=== PATIENT | male | born 1930 | race Caucasian/White ===

== ENCOUNTER 2016-05-14 15:10 | Inpatient (IN) | payer MEDICARE ==
--- NOTE | ~2016-05-14 | HP ---
History And Physical [place] [id number] [facility] [place]. [address] NAME: Fran HUBBARD JR : 34 STATUS : ADM IN [facility]#: [id number] AGE: 85 ADM/REG DATE : 05/14/16 MR#: [id number] REPORT SERV DATE: 05/15/16 DICTATED BY: JUAN CHAVEZ DATE: 05/14/16 REPORT STATUS : Draft TRANSCRIBED BY: FRANCINE DATE: 05/14/16 DATE OF ADMISSION: 05/14/2016 CHIEF COMPLAINT: Generalized weakness and fatigue. HISTORY OF PRESENT ILLNESS: This is an 85-year-old male with medical history significant for COPD on home O2 at night, chronic kidney disease stage III, history of aortic valve replacement, morbid obesity, chronic lymphedema, who presented to the emergency room department with complaints of generalized fatigue and generalized weakness. The patient reports that he was in his usual state of health until three days ago when he noticed that he was having generalized weakness and fatigue with some associated low-grade fevers at home. Until the day of presentation, he subsequently developed a cough, which became productive of yellowish sputum. There was associated diffuse wheezing and shortness of breath on exertion and at rest. The patient reports some positive history of sick contact, the patient's and daughter were recently diagnosed with flu. The patient reports that in the last 24 hours, he has developed severe fatigue and is unable to walk or ambulate without support. He has also reports generalized reduced p.o. intake as well as loss of appetite. The patient and his currently lives with their daughter. The patient's family, , and daughter who were at the bedside reports that the patient has been having progressive decline in his overall physical condition. He has had two recent falls. The patient's reports that she is currently unable to take care of him and will like for the patient to be placed at a correction facility at the time of discharge. PAST MEDICAL HISTORY: 1. Chronic kidney disease stage III. 2. COPD. 3. Aortic valve replacement. 4. Morbid obesity. 5. Chronic lymphedema. 6. Carotid stenosis, status post stent placement. 7. Diastolic heart failure with preserved EF. 8. Penile cancer status post penectomy. PAST SURGICAL HISTORY: 1. Placement of bioprosthetic (bovine aortic valve). 2. Bilateral knee replacement surgery. 3. Multiple back surgeries. 4. Penile shaft surgery following diagnosis of penile cancer. 5. Carotid stent placement. SOCIAL HISTORY: The patient denies smoking cigarettes, drinking alcohol, or illicit drug use. Presently, the patient and his lives with his daughter. ALLERGIES: History And Physical [address] [address] NAME: Fran HUBBARD JR : 32 STATUS : ADM IN PAT#: [id number] AGE: 85 ADM/REG DATE : 05/14/16 MR#: [id number] REPORT SERV DATE: 05/15/16 DICTATED BY: JUAN CHAVEZ DATE: 05/14/16 REPORT STATUS : Draft TRANSCRIBED BY: FRANCINE DATE: 05/14/16 1. ALLERGIC TO METRONIDAZOLE. 2. ALLERGIC TO CEFACLOR AND BACTRIM. REVIEW OF SYSTEMS: NEURO: Denies any headache, seizure-like activities, or confusion. SKIN: Denies any rash or lump. No soreness or itching. RESPIRATORY: As per HPI. Please note, no hemoptysis. CARDIOVASCULAR: Denies any chest pain. No palpitations. No presyncope, syncopal attack. No orthopnea. No PND. URINARY: Denies any polyuria, polydipsia, frequency, or urgency. ENDOCRINE: Denies any heat or cold intolerance. Denies excessive sweating. HEMATOLOGY: Denies any easy bleeding. LYMPHATIC SYSTEM: Denies any generalized body swelling. PHYSICAL EXAMINATION: VITAL SIGNS: Temperature 101.9, blood pressure 185/70, pulse 109 beats per minute, saturating 97% on room air. GENERAL: Not in any acute distress. HEENT: Extraocular muscles intact. Pupils equal, round, and reactive. Oral mucosa dry. NECK: Supple. CHEST: Equally symmetrical. LUNGS: Mild expiratory wheezes. HEART: S1, S2. No murmurs. Regular rate and rhythm. ABDOMEN: Bowel sounds normoactive. Nontender. No palpably enlarged organomegaly. EXTREMITIES: Lower extremities, presence of bilateral lymphedema with evidence of venous stasis. LABORATORY DATA: Blood gas; pH 7.34, pCO2 47, pO2 86. Chemistry; sodium 142, potassium 4.2, chloride 105, bicarb 28, BUN 28, creatinine 1.66, GFR 44. Hematology; WBC 5.7, hemoglobin 11.1, hematocrit 37.7, platelets 174. IMAGING STUDIES: Chest x-ray, impression: No acute cardiopulmonary process. Current urinalysis negative. ASSESSMENT AND PLAN: In summary, this is an 85-year-old male with medical history significant for chronic obstructive pulmonary disease, morbid obesity, chronic kidney disease, who presented to the hospital with generalized fatigue and weakness, found to have a fever of 101.9. He tested positive for flu test. Also, noted to be having significant wheezing on presentation concerning for COPD exacerbation. The patient is admitted to the Hospitalist Service for management of flu as well as COPD exacerbation. 1. Flu test positive. The patient has positive history of contact with family members with flu. Also reported not taken flu vaccine, flu test. Flu B positive. Plan: History And Physical [address] [address] NAME: Fran HUBBARD JR : 32 STATUS : ADM IN [facility]#: [id number] AGE: 85 ADM/REG DATE : 05/14/16 MR#: [id number] REPORT SERV DATE: 05/15/16 DICTATED BY: JUAN CHAVEZ DATE: 05/14/16 REPORT STATUS : Draft TRANSCRIBED BY: FRANCINE DATE: 05/14/16 1. We will start the patient on Tamiflu 75 mg p.o. b.i.d. 2. We will give Tylenol 325 p.o. p.r.n. for fever control. 3. Chronic obstructive pulmonary disease exacerbation. The patient has extensive history of COPD, has excessive wheezing on presentation. The patient already received DuoNebs on my physical examination. The patient has very minimal wheezing, currently saturating at 94% on 2 L of oxygen. Plan: 1. We will continue IV methylprednisone. 2. We will also continue DuoNebs every four to six hours p.r.n. 3. We will add levofloxacin 75 mg IV. 4. Acute kidney injury on chronic kidney disease. The patient's last known creatinine baseline was 1.3. On today's presentation, the patient's creatinine is 1.6, likely due to reduced p.o. intake. We will give the patient gentle IV fluids. We will continue to monitor renal function. 5. Social problem: The patient's family members report that they are unable to care for him at this time as the patient has required a lot of support. The patient has had multiple falls, progressive physical deconditioning. The patient's family requested him to be placed at a detention facility. The patient's choice will be NH in [place] in [place]. Plan: We will contact elementary school social worker to help with the placement of this patient to [facility] at [place]. CODE STATUS: DNR. IOO/MODL Juan Chavez MD / [id number] CC: Rene Romo Jr, MD
--- NOTE | ~2016-05-14 | DS ---
Discharge Summary [facility] [address] [place]. [address] NAME: Fran HUBBARD JR : 32 STATUS : DIS IN PAT#: [id number] AGE: 85 ADM/REG DATE : 05/14/16 MR#: [id number] REPORT SERV DATE: 05/24/16 DICTATED BY: MARCIE COSTA DATE: 05/23/16 REPORT STATUS : Draft TRANSCRIBED BY: MODL DATE: 05/23/16 ADMISSION DATE: 05/14/2016 DISCHARGE DATE: 05/23/2016 CHIEF COMPLAINT ON ADMISSION: Generalized fatigue and weakness. DISCHARGE DIAGNOSES: 1. Acute on chronic diastolic heart failure. 2. Recurrent hypotension with medications. 3. Atrial fibrillation. 4. Demand ischemia with type 2 myocardial infarction. 5. Influenza type B. 6. Dementia. 7. History of penile cancer, status post penectomy. 8. Acute exacerbation of chronic obstructive pulmonary disease. 9. Acute on chronic hypoxic respiratory failure. 10.History of chronic kidney disease stage 3. 11.Acute encephalopathy on chronic dementia. HISTORY OF PRESENT ILLNESS: Please see full H and P by Dr. Lee from admission. HOSPITAL COURSE: 1. Influenza B. The patient was treated with Tamiflu for full five days. He did not have any evidence of superinfection. This has resolved. 2. Acute exacerbation of COPD with acute on chronic hypoxic respiratory failure. The patient was treated with nebulizers and steroids. This has resolved. He is currently on 3 L nasal cannula. This can be weaned to baseline as appropriate. 3. Acute on chronic diastolic heart failure. Suspect this is due to given for his acute illness. He did have diuresis, although this resulted in acute renal failure as well as hypotension. We recommend resuming his previous medications with great caution as he did have recurrence of hypotension with resuming hydralazine and JONATHAN inhibitor Altace. At this point, we will hold Altace given his inability to tolerate it due to hypotension. 4. CKD stage 3. The patient did have acute renal failure after attempts at diuresis. This has improved. It appears his baseline is 1.3 to 1.6. He is 1.9 at discharge. His blood pressures improved. Suspect this will continue to trend in the right direction. His creatinine got up to 3.4 at its peak. Again, his baseline is 1.3 to 1.6. 5. Atrial fibrillation. Continue the patient's beta-arsalan. He is not on chronic anticoagulation. 6. Demand ischemia with type 2 AK. This is due to his profound hypotension after diuresis. This has resolved and trended down without any chest pain or acute ischemic changes. 7. Acute encephalopathy on baseline dementia. Due to infection. This has resolved. DISPOSITION: Subacute rehab. Discharge Summary [address] [address] NAME: Fran HUBBARD JR : 32 STATUS : DIS IN PAT#: [id number] AGE: 85 ADM/REG DATE : 05/14/16 MR#: [id number] REPORT SERV DATE: 05/24/16 DICTATED BY: MARCIE COSTA DATE: 05/23/16 REPORT STATUS : Draft TRANSCRIBED BY: FRANCINE DATE: 05/23/16 DISCHARGE MEDICATIONS: Aspirin 81 mg, Plavix 75 mg daily, Lasix 40 mg p.o. b.i.d., guaifenesin 1200 mg p.o. b.i.d., DuoNebs q.6 hours, memantine 10 mg p.o. b.i.d., metoprolol 50 mg p.o. b.i.d., pantoprazole 40 mg daily, pravastatin 40 mg in the evening, tramadol, and Percocet available p.r.n. CODE STATUS: At this time of discharge is do not resuscitate. Time spent on discharge is greater than 30 minutes. DNK/MODL Marcie Costa MD / [id number] CC: MD Devang Moeller M.D.
[~2016-05-14 15:10] MED LIST: ALTA5 PO; ASAB PO; AT25 PO; BIST PO; CIP5 PO; COMBIVENT INH; COREG25 PO; COUMADIN3 MG PO; ENDOCET1 TA3 PO; KADIANSR30 PO; KLOR-CON 1010 MEQ PO; KLOR-CON M2020 MEQ PO; L80 PO; LOP50 PO; NAMENDA5 PO; NORCO1 TAB PO; NORV10 PO; PCET PO; PERCOCET1 TA4 PO; PLAVIX PO; PRAVACHOL40 MG PO; PRIN20 PO; PROBIOTIC; VANCO1P IV; ZANTAC 150 PO; ZANTAC150 MG PO; ZOCOR40 PO
[2016-05-14 15:33] LABS: BASOPHILS 0.2 %; BASOPHILS ABSOLUTE 0.01 10/3/uL (0.0-0.16); EOSINOPHILS 0 %; HEMATOCRIT 35.7 % (40.0-51.0); HEMOGLOBIN 11.1 g/dL (13.6-17.8); IMMATURE GRANULOCYTES 0.2 %; IMMATURE GRANULOCYTES ABSOLUTE 0.01 10/3/uL (0.0-0.11); LYMPHOCYTES 40.9 %; LYMPHOCYTES ABSOLUTE 2.34 10/3/uL (0.67-4.30); MEAN CORPUS HGB CONC 31.1 g/dL (32.0-36.0); MEAN CORPUSCULAR HEMOGLOB 31.4 pg (26.0-34.0); MEAN CORPUSCULAR VOLUME 100.8 fL (80-100); MONOCYTES 13.1 %; MONOCYTES ABSOLUTE 0.75 10/3/uL (0.21-1.20); NEUTROPHILS 45.6 %; NEUTROPHILS ABSOLUTE 2.61 10/3/uL (2.02-8.40); PLATELET COUNT 174 10/3/uL (150-400); RBC DISTRIBUTION WIDTH 14.5 % (12.0-16.0); RED CELL COUNT 3.54 10/6/uL (4.7-6.1); WHITE BLOOD CELLS 5.7 10/3/uL (4.5-10.5)
[2016-05-14 15:36] LABS: MANUAL DIFF NO %
[2016-05-14 15:46] LABS: INFLUENZA A SCREEN NEGATIVE (NEGATIVE); INFLUENZA B SCREEN POSITIVE (NEGATIVE)
[2016-05-14 15:49] LABS: A/G RATIO 0.9 (0.7-1.9); ALBUMIN 3.3 G/DL (3.5-5.0); ALKALINE PHOSPHATASE 87 U/L (45-117); BUN (BLOOD UREA NITROGEN) 28 MG/DL (6-23); CHLORIDE, SERUM 105 MMOL/L (96-112); CO2 (CARBON DIOXIDE) 28 MMOL/L (24-34); CREATININE 1.66 MG/DL (0.70-1.30); GFR AFRICAN AMERICAN 44 ML/MIN (>=60); GFR NON AFRICAN AMERICAN 38 ML/MIN (>=60); GLOBULIN 3.7 G/DL (2.5-4.1); GLUCOSE, SERUM 99 MG/DL (60-99); POTASSIUM, SERUM 4.2 MMOL/L (3.5-5.3); SGOT(AST) 33 U/L (5-40); SGPT(ALT) 21 U/L (5-65); SODIUM, SERUM 142 MMOL/L (135-148); TOTAL BILIRUBIN 0.6 MG/DL (0-1.2)
[2016-05-14 15:51] LABS: LACTATE 1.2 MMOL/L (0.3-2.4)
[2016-05-14 18:16] LABS: BE (BASE EXCESS) -1.4 MEQ/L (0 +/- 2.5); DEVICE NC; HCO3 (ACTUAL BICARBONATE) 24.7 MEQ/L (23-27); HEMOBLOGIN CONTENT 11.8 G/DL (14-18); INSTRUMENT SERIAL # 8087; METHEMOGLOBIN 0.3 % (0-3); O2 CONTENT 15.8 VOL% (18-24); PCO2 (CO2 TENSION) 47 MMHG (35-45); PO2 (O2 TENSION) 86 MMHG (79-93); SAMPLE Arterial; pH 7.34 (7.37-7.43)
[2016-05-14 18:17] LABS: ALLENS TEST Pos
[2016-05-14] MEDS ORDERED: ENDOCET1 TA3 PO (18:59)
[2016-05-14] MEDS ORDERED: KLOR-CON M2020 MEQ PO (19:00)
[2016-05-14] MEDS ORDERED: LOP50 PO (19:00)
[2016-05-14] MEDS ORDERED: PLAVIX PO (19:01)
[2016-05-14] MEDS ORDERED: PRAVACHOL40 MG PO (19:01)
[2016-05-14] MEDS ORDERED: L80 PO (19:01)
[2016-05-14] MEDS ORDERED: ALTACE10 MG PO (19:01)
[2016-05-14] MEDS ORDERED: APRES25 PO (19:02)
[2016-05-14] MEDS ORDERED: NAMENDA10 MG PO (19:02)
[2016-05-14] MEDS ORDERED: ASAB PO (19:02)
[2016-05-14] MEDS ORDERED: T PO (19:03)
[2016-05-14] MEDS ORDERED: MIRALAX POWDER1 PKT PO (19:04)
[2016-05-14] MEDS ORDERED: REFRES1 OPH (19:05)
[2016-05-14 22:53] LABS: FREE T4 0.99 NG/DL (0.76-1.46); PHOSPHORUS, SERUM 3.3 MG/DL (2.5-4.5); ULTRASENSITIVE TSH 0.901 MCIU/ML (0.358-3.740)
[2016-05-14 23:25] LABS: PROCALCITONIN <0.05 ng/mL (<0.5)
[2016-05-15 04:49] LABS: BASOPHILS 0.3 %; BASOPHILS ABSOLUTE 0.01 10/3/uL (0.0-0.16); EOSINOPHILS 0 %; HEMATOCRIT 35.5 % (40.0-51.0); HEMOGLOBIN 10.8 g/dL (13.6-17.8); IMMATURE GRANULOCYTES 0.3 %; IMMATURE GRANULOCYTES ABSOLUTE 0.01 10/3/uL (0.0-0.11); LYMPHOCYTES ABSOLUTE 0.96 10/3/uL (0.67-4.30); MEAN CORPUS HGB CONC 30.4 g/dL (32.0-36.0); MEAN CORPUSCULAR HEMOGLOB 29.9 pg (26.0-34.0); MEAN CORPUSCULAR VOLUME 98.3 fL (80-100); MEAN PLATELET VOLUME 11.3 fL (9.2-13.0); MONOCYTES 4.5 %; MONOCYTES ABSOLUTE 0.15 10/3/uL (0.21-1.20); NEUTROPHILS 65.9 %; NEUTROPHILS ABSOLUTE 2.18 10/3/uL (2.02-8.40); PLATELET COUNT 173 10/3/uL (150-400); RBC DISTRIBUTION WIDTH 14.5 % (12.0-16.0); RED CELL COUNT 3.61 10/6/uL (4.7-6.1)
[2016-05-15 04:54] LABS: WHITE BLOOD CELLS 3.3 10/3/uL (4.5-10.5)
[2016-05-15 04:55] LABS: MANUAL DIFF NO %
[2016-05-15 05:02] LABS: ALBUMIN 2.8 G/DL (3.5-5.0); BUN (BLOOD UREA NITROGEN) 30 MG/DL (6-23); CALCIUM, SERUM 8.2 MG/DL (8.5-10.4); CHLORIDE, SERUM 107 MMOL/L (96-112); CO2 (CARBON DIOXIDE) 22 MMOL/L (24-34); CREATININE 1.35 MG/DL (0.70-1.30); GFR AFRICAN AMERICAN 56 ML/MIN (>=60); GFR NON AFRICAN AMERICAN 48 ML/MIN (>=60); GLUCOSE, SERUM 177 MG/DL (60-99); PHOSPHORUS, SERUM 2.4 MG/DL (2.5-4.5); POTASSIUM, SERUM 4.3 MMOL/L (3.5-5.3); SODIUM, SERUM 142 MMOL/L (135-148)
[2016-05-17 04:25] LABS: BASOPHILS 0.2 %; BASOPHILS ABSOLUTE 0.02 10/3/uL (0.0-0.16); EOSINOPHILS 0 %; HEMATOCRIT 37.5 % (40.0-51.0); HEMOGLOBIN 11.6 g/dL (13.6-17.8); IMMATURE GRANULOCYTES 0.3 %; IMMATURE GRANULOCYTES ABSOLUTE 0.03 10/3/uL (0.0-0.11); LYMPHOCYTES 26.4 %; MEAN CORPUS HGB CONC 30.9 g/dL (32.0-36.0); MEAN CORPUSCULAR HEMOGLOB 31.1 pg (26.0-34.0); MEAN CORPUSCULAR VOLUME 100.5 fL (80-100); MEAN PLATELET VOLUME 11.7 fL (9.2-13.0); MONOCYTES 13.4 %; MONOCYTES ABSOLUTE 1.22 10/3/uL (0.21-1.20); NEUTROPHILS 59.7 %; NEUTROPHILS ABSOLUTE 5.42 10/3/uL (2.02-8.40); PLATELET COUNT 193 10/3/uL (150-400); RBC DISTRIBUTION WIDTH 14.4 % (12.0-16.0); RED CELL COUNT 3.73 10/6/uL (4.7-6.1)
[2016-05-17 04:26] LABS: MANUAL DIFF NO %; WHITE BLOOD CELLS 9.1 10/3/uL (4.5-10.5)
[2016-05-17 04:39] LABS: CALCIUM, SERUM 8.7 MG/DL (8.5-10.4); CHLORIDE, SERUM 107 MMOL/L (96-112); CO2 (CARBON DIOXIDE) 25 MMOL/L (24-34); CREATININE 1.34 MG/DL (0.70-1.30); GFR AFRICAN AMERICAN 56 ML/MIN (>=60); GFR NON AFRICAN AMERICAN 49 ML/MIN (>=60); POTASSIUM, SERUM 4.6 MMOL/L (3.5-5.3); SODIUM, SERUM 141 MMOL/L (135-148)
[2016-05-17 04:42] LABS: BUN (BLOOD UREA NITROGEN) 34 MG/DL (6-23); GLUCOSE, SERUM 116 MG/DL (60-99)
[2016-05-17 14:21] LABS: ALLENS TEST Pos; BE (BASE EXCESS) -0.3 MEQ/L (0 +/- 2.5); CARBOXYHEMOGLOBIN 0.3 % (0-3); DEVICE NC; HCO3 (ACTUAL BICARBONATE) 24.9 MEQ/L (23-27); HEMOBLOGIN CONTENT 12.4 G/DL (14-18); INSTRUMENT SERIAL # 35151; METHEMOGLOBIN 0.6 % (0-3); O2 CONTENT 16.8 VOL% (18-24); PCO2 (CO2 TENSION) 43 MMHG (35-45); PO2 (O2 TENSION) 91 MMHG (79-93); SAMPLE Arterial; pH 7.38 (7.37-7.43)
[2016-05-19 12:26] LABS: BASOPHILS 0.2 %; BASOPHILS ABSOLUTE 0.02 10/3/uL (0.0-0.16); EOSINOPHILS 0 %; HEMATOCRIT 35.3 % (40.0-51.0); HEMOGLOBIN 10.9 g/dL (13.6-17.8); IMMATURE GRANULOCYTES 0.3 %; IMMATURE GRANULOCYTES ABSOLUTE 0.04 10/3/uL (0.0-0.11); LYMPHOCYTES 25.5 %; LYMPHOCYTES ABSOLUTE 2.93 10/3/uL (0.67-4.30); MEAN CORPUS HGB CONC 30.9 g/dL (32.0-36.0); MEAN CORPUSCULAR HEMOGLOB 31.4 pg (26.0-34.0); MEAN CORPUSCULAR VOLUME 101.7 fL (80-100); MEAN PLATELET VOLUME 11.6 fL (9.2-13.0); MONOCYTES 10.3 %; MONOCYTES ABSOLUTE 1.18 10/3/uL (0.21-1.20); NEUTROPHILS 63.7 %; NEUTROPHILS ABSOLUTE 7.33 10/3/uL (2.02-8.40); PLATELET COUNT 165 10/3/uL (150-400); RED CELL COUNT 3.47 10/6/uL (4.7-6.1); WHITE BLOOD CELLS 11.5 10/3/uL (4.5-10.5)
[2016-05-19 12:27] LABS: MANUAL DIFF NO %
[2016-05-19 12:38] LABS: BUN (BLOOD UREA NITROGEN) 59 MG/DL (6-23); CALCIUM, SERUM 8.6 MG/DL (8.5-10.4); CHLORIDE, SERUM 108 MMOL/L (96-112); CO2 (CARBON DIOXIDE) 27 MMOL/L (24-34); CREATININE 3.42 MG/DL (0.70-1.30); GFR AFRICAN AMERICAN 18 ML/MIN (>=60); GFR NON AFRICAN AMERICAN 16 ML/MIN (>=60); GLUCOSE, SERUM 117 MG/DL (60-99); POTASSIUM, SERUM 4.6 MMOL/L (3.5-5.3); SODIUM, SERUM 145 MMOL/L (135-148)
[2016-05-20 05:48] LABS: BASOPHILS 0.2 %; BASOPHILS ABSOLUTE 0.02 10/3/uL (0.0-0.16); EOSINOPHILS 0.5 %; EOSINOPHILS ABSOLUTE 0.04 10/3/uL (0.0-0.53); HEMATOCRIT 35.4 % (40.0-51.0); HEMOGLOBIN 10.7 g/dL (13.6-17.8); IMMATURE GRANULOCYTES 0.5 %; IMMATURE GRANULOCYTES ABSOLUTE 0.04 10/3/uL (0.0-0.11); LYMPHOCYTES 31.8 %; LYMPHOCYTES ABSOLUTE 2.79 10/3/uL (0.67-4.30); MEAN CORPUS HGB CONC 30.2 g/dL (32.0-36.0); MEAN CORPUSCULAR HEMOGLOB 30.7 pg (26.0-34.0); MEAN CORPUSCULAR VOLUME 101.4 fL (80-100); MEAN PLATELET VOLUME 12.1 fL (9.2-13.0); MONOCYTES 10.9 %; MONOCYTES ABSOLUTE 0.96 10/3/uL (0.21-1.20); NEUTROPHILS 56.1 %; NEUTROPHILS ABSOLUTE 4.93 10/3/uL (2.02-8.40); PLATELET COUNT 160 10/3/uL (150-400); RBC DISTRIBUTION WIDTH 15.5 % (12.0-16.0); RED CELL COUNT 3.49 10/6/uL (4.7-6.1); WHITE BLOOD CELLS 8.8 10/3/uL (4.5-10.5)
[2016-05-20 05:49] LABS: MANUAL DIFF NO %
[2016-05-20 06:07] LABS: BUN (BLOOD UREA NITROGEN) 60 MG/DL (6-23); CALCIUM, SERUM 8.3 MG/DL (8.5-10.4); CHLORIDE, SERUM 111 MMOL/L (96-112); CO2 (CARBON DIOXIDE) 25 MMOL/L (24-34); GFR AFRICAN AMERICAN 24 ML/MIN (>=60); GFR NON AFRICAN AMERICAN 21 ML/MIN (>=60); GLUCOSE, SERUM 117 MG/DL (60-99); POTASSIUM, SERUM 4.6 MMOL/L (3.5-5.3); SODIUM, SERUM 147 MMOL/L (135-148)
[2016-05-20 06:12] LABS: CREATININE 2.67 MG/DL (0.70-1.30)
[2016-05-21 06:41] LABS: CALCIUM, SERUM 8.8 MG/DL (8.5-10.4); CHLORIDE, SERUM 111 MMOL/L (96-112); CO2 (CARBON DIOXIDE) 28 MMOL/L (24-34); GLUCOSE, SERUM 111 MG/DL (60-99); POTASSIUM, SERUM 4.6 MMOL/L (3.5-5.3); SODIUM, SERUM 146 MMOL/L (135-148)
[2016-05-21 06:43] LABS: BUN (BLOOD UREA NITROGEN) 38 MG/DL (6-23); CREATININE 1.39 MG/DL (0.70-1.30); GFR AFRICAN AMERICAN 54 ML/MIN (>=60); GFR NON AFRICAN AMERICAN 47 ML/MIN (>=60); TROPONIN I 1.19 NG/ML (<0.05)
[2016-05-22 05:28] LABS: BUN (BLOOD UREA NITROGEN) 40 MG/DL (6-23); CALCIUM, SERUM 8.6 MG/DL (8.5-10.4); CHLORIDE, SERUM 110 MMOL/L (96-112); CO2 (CARBON DIOXIDE) 31 MMOL/L (24-34); GFR AFRICAN AMERICAN 45 ML/MIN (>=60); GFR NON AFRICAN AMERICAN 39 ML/MIN (>=60); GLUCOSE, SERUM 101 MG/DL (60-99); POTASSIUM, SERUM 4.7 MMOL/L (3.5-5.3); SODIUM, SERUM 147 MMOL/L (135-148); TROPONIN I 0.65 NG/ML (<0.05)
[2016-05-23 05:53] LABS: CALCIUM, SERUM 8.7 MG/DL (8.5-10.4); CHLORIDE, SERUM 108 MMOL/L (96-112); CREATININE 1.98 MG/DL (0.70-1.30); GFR AFRICAN AMERICAN 35 ML/MIN (>=60); GFR NON AFRICAN AMERICAN 30 ML/MIN (>=60); GLUCOSE, SERUM 89 MG/DL (60-99); POTASSIUM, SERUM 4.4 MMOL/L (3.5-5.3); SODIUM, SERUM 144 MMOL/L (135-148)
[2016-05-23 05:54] LABS: BUN (BLOOD UREA NITROGEN) 47 MG/DL (6-23); CO2 (CARBON DIOXIDE) 26 MMOL/L (24-34)
[2016-09-01] MEDS ORDERED: PLAVIX PO (05:41)
[2016-09-01] MEDS ORDERED: ASAB PO (05:41)
[2016-09-01] MEDS ORDERED: L40 PO (05:42)
[2016-09-01] MEDS ORDERED: L20 PO (05:42)
[2016-09-01] MEDS ORDERED: DUONEB INH (05:43)
[2016-09-01] MEDS ORDERED: NAMENDA10 MG PO (05:43)
[2016-09-01] MEDS ORDERED: ZAROX2.5B PO (05:43)
[2016-09-01] MEDS ORDERED: LOP25 PO (05:43)
[2016-09-01] MEDS ORDERED: PRAVACHOL40 MG PO (05:44)
[2016-09-01] MEDS ORDERED: KLOR-CON M2020 MEQ PO (05:44)
[2016-09-01] MEDS ORDERED: MIRALAX POWDER1 PKT PO (05:44)
[2016-09-01] MEDS ORDERED: MUCINEX600 MG PO (05:44)
[2016-09-01] MEDS ORDERED: T PO (05:45)
[2016-09-01] MEDS ORDERED: SEROQUEL50 MG PO (05:45)
[2016-09-01] MEDS ORDERED: LIQUID TEARS OPH (05:46)
[2016-09-01] MEDS ORDERED: BISR PR (05:46)
[2016-09-01] MEDS ORDERED: DSS PO (05:47)
[2016-09-01] MEDS ORDERED: TUMSROLL PO (05:47)
[2016-09-01] MEDS ORDERED: APRES25 PO (05:50)
[2016-09-01] MEDS ORDERED: HALDOL IM (05:50)
[2016-09-01] MEDS ORDERED: MELA3 PO (05:50)
[2016-09-01] MEDS ORDERED: MOMUD PO (05:51)
[2016-09-01] MEDS ORDERED: ZOFRAN ODT4 MG PO (05:51)
[2016-09-01] MEDS ORDERED: PERCOCET 10/3251 TAB PO (05:52)
[2016-09-01] MEDS ORDERED: ULTRAM50 PO (05:52)
[2016-09-01] MEDS ORDERED: SENTAB PO (05:52)
== END 2016-05-23 15:47 | DRG 193 ==
LOC: ER 15:10 → CDU1 18:18 → 6NO 20:42
PROVIDERS: Hospitalist; Internal Medicine; Nurse Practitioner
DX: J10.1 Influenza due to other identified influenza virus with other respiratory manifestations (principal); I50.33 Acute on chronic diastolic (congestive) heart failure; J96.21 Acute and chronic respiratory failure with hypoxia; G92 Toxic encephalopathy; N17.9 Acute kidney failure, unspecified; E66.01 Morbid (severe) obesity due to excess calories; I24.8 Other forms of acute ischemic heart disease; I95.2 Hypotension due to drugs; J44.1 Chronic obstructive pulmonary disease with (acute) exacerbation; I13.0 Hypertensive heart and chronic kidney disease with heart failure and stage 1 through stage 4 chronic kidney disease, or unspecified chronic kidney disease; N18.3 Chronic kidney disease, stage 3 (moderate); G89.4 Chronic pain syndrome; I48.0 Paroxysmal atrial fibrillation; I89.0 Lymphedema, not elsewhere classified; F03.90 Unspecified dementia, unspecified severity, without behavioral disturbance, psychotic disturbance, mood disturbance, and anxiety; T46.5X5A Adverse effect of other antihypertensive drugs, initial encounter; T46.4X5A Adverse effect of angiotensin-converting-enzyme inhibitors, initial encounter; Z68.38 Body mass index [BMI] 38.0-38.9, adult; Z90.79 Acquired absence of other genital organ(s); Z85.49 Personal history of malignant neoplasm of other male genital organs; Z79.82 Long term (current) use of aspirin; Z79.02 Long term (current) use of antithrombotics/antiplatelets; Z95.828 Presence of other vascular implants and grafts; Z91.81 History of falling
CPT/HCPCS: 36600; 71010; 71020; 80048; 80053; 80069; 82805; 82962; 83605; 83735; 83880; 84100; 84145; 84439; 84443; 84484; 85025; 87040; 87070; 87205; 87804; 93005; 94640; 96374; 97162-GP; 97530-GP; 99285; A9270-GY; G8978-CL-GP; G8979-CL-GP; G8980-CL-GP; J1940; J1956; J2405; J2920; J2930

== ENCOUNTER 2016-06-12 15:23 | Inpatient (IN) | payer MEDICARE ==
--- NOTE | ~2016-06-12 | DS ---
Discharge Summary [place] [id number] [place]. [address] NAME: YARITZA HUBBARD JR : 32 STATUS : DIS IN PAT#: [id number] AGE: 85 ADM/REG DATE : 06/12/16 MR#: [id number] REPORT SERV DATE: 06/16/16 DICTATED BY: RADHA DEMARCO DATE: 06/15/16 REPORT STATUS : Draft TRANSCRIBED BY: MODL DATE: 06/15/16 ADMISSION DATE: 06/12/2016 DISCHARGE DATE: 06/15/2016 REASON FOR ADMISSION: Reported hematochezia. HISTORY OF PRESENT ILLNESS: Please refer to Dr. Lee's history and physical for complete details regarding the patient's admission. In brief, the patient was admitted to the Hospitalist Service for concern of his hematochezia. HOSPITAL COURSE: The patient had an uncomplicated hospital course. He had multiple hemoglobin checks, which have all been stable at around 12. Dr. Garcia with GI Medicine was consulted and felt that this was due to hemorrhoids versus stercoral ulcer. Dr. Garcia had a long discussion with the patient's and discussed how difficult it would be to have a proper colonoscopy in this patient and he would not favor colonoscopy at this time unless life-threatening bleeding occurs. Especially given the fact the patient's hemoglobin had been stable and we were never able to obtain a Hemoccult, it was best that no intervention was done in the patient's best interest. The patient is requesting to go back to his facility. He will be discharged today in a stable condition. DISCHARGE DIAGNOSES: Reported hematochezia, now resolved; advanced dementia; left carotid stenosis, status post stent; chronic obstructive pulmonary disease without exacerbation; chronic diastolic heart failure; chronic kidney disease, stage 3, DO NOT RESUSCITATE. PROCEDURES: Include consultation with Dr. Garcia of [facility]. DISCHARGE MEDICATIONS: Include furosemide 40 mg twice a day; guaifenesin; Namenda 10 mg twice a day; Anusol one suppository p.r. twice a day; metoprolol tartrate 50 mg twice a day; Pravachol 40 mg at bedtime; Seroquel 25 mg twice a day; aspirin 81 mg daily; Plavix 75 mg daily; Percocet twice a day p.r.n. pain, he has only received one dose daily in the hospital; DuJojob p.r.n.; Tylenol p.r.n.; Bion Tears p.r.n.; Dulcolax daily; Tums; hydralazine p.r.n.; Fleet Enema p.r.n.; Colace p.r.n.; Zofran p.r.n.; MiraLAX p.r.n., and tramadol p.r.n. pain. FOLLOWUP: The patient will follow up back to [facility] where he resides as a long-term resident. This is Dr. Radha Demarco spending over 30 minutes in discharge planning and coordination of care of Mr. Hubbard. MANDI/FRANCINE Radha Demarco MD Discharge Summary [address] [address] NAME: YARITZA HUBBARD : 32 STATUS : DIS IN PAT#: [id number] AGE: 85 ADM/REG DATE : 06/12/16 MR#: [id number] REPORT SERV DATE: 06/16/16 DICTATED BY: RADHA DEMARCO DATE: 06/15/16 REPORT STATUS : Draft TRANSCRIBED BY: FRANCINE DATE: 06/15/16 / [id number] CC: MD Devang Garcia M.D.
--- NOTE | ~2016-06-12 | HP ---
History And Physical [place] [address] [facility] [place]. [address] NAME: YARITZA HUBBARD JR : 32 STATUS : ADM IN [facility]#: [id number] AGE: 85 ADM/REG DATE : 06/12/16 MR#: [id number] REPORT SERV DATE: 06/13/16 DICTATED BY: JUAN CHAVEZ DATE: 06/12/16 REPORT STATUS : Draft TRANSCRIBED BY: MODKindra DATE: 06/12/16 DATE OF ADMISSION: 06/12/2016 CHIEF COMPLAINT: Bleeding per rectum. HISTORY OF PRESENT ILLNESS: This is an 85-year-old gentleman with medical history significant for left carotid stenosis, status post left carotid stent on Plavix and aspirin, COPD on home O2 at night, chronic kidney disease, history of aortic bovine valve replacement, morbid obesity, chronic lymphedema, and advanced dementia, who presented from [facility] with complaints of bleeding per rectum. The patient has a history of advanced dementia, hence H and P was provided by the caregiver at the alf. Per the alf RN, she reports that the patient developed constipation about a week ago and was started on gentle laxative. The patient received Colace and Dulcolax at the alf without any significant improvement in constipation, hence the patient was given a suppository enema and a Fleet enema. The patient subsequently had multiple bowel movements and developed some evidence of diarrhea. The patient's diarrhea improved about 48 hours prior to presentation. Twenty four hours prior to presentation, the patient was noted to have stool which was mixed with blood. On the morning of presentation, the patient was noted to have lisa bright red blood per rectum. Hence, the alf decided to bring the patient to the hospital for further evaluation. Per the alf, no prior history of fever, chills, presyncopal or syncopal episodes. No episode of chest pain, palpitation, nausea, abdominal pain, or vomiting. PAST MEDICAL HISTORY: 1. Chronic kidney disease, stage 3. 2. COPD. 3. Aortic bovine valve replacement. 4. Morbid obesity. 5. Advanced dementia. 6. Chronic lymphedema. 7. Carotid stenosis, status post stent placement. 8. Diastolic heart failure with preserved EF. 9. History of penile cancer, status post penectomy. PAST SURGICAL HISTORY: 1. Placement of bioprosthetic bovine aortic valve. 2. Bilateral knee replacement surgery. 3. Multiple back surgeries. 4. Penile shaft surgery following diagnosis of penile cancer. 5. Carotid stent placement. SOCIAL HISTORY: The patient denies smoking cigarettes, drinking alcohol, or illicit drug use. The patient is currently is a resident of [facility], [place]. ALLERGIES HISTORY: Metronidazole, cefaclor, and Bactrim. History And Physical [address] [address] NAME: YARITZA HUBBARD JR : 32 STATUS : ADM IN PAT#: [id number] AGE: 85 ADM/REG DATE : 06/12/16 MR#: [id number] REPORT SERV DATE: 06/13/16 DICTATED BY: JUAN CHAVEZ DATE: 06/12/16 REPORT STATUS : Draft TRANSCRIBED BY: FRANCINE DATE: 06/12/16 FAMILY HISTORY: Significant for hypertension and diabetes. REVIEW OF SYSTEMS: A 12-point review of system conducted essentially negative. Positive findings as per HPI. PHYSICAL EXAMINATION: VITAL SIGNS: Blood pressure 138/73, temperature 97.5, pulse 103 beats per minute, respiratory rate 16 cycles per minute, and saturating 100% on room air. GENERAL: Not in any acute distress. Lying in bed comfortably. Awake and alert x1. HEENT: Normocephalic, atraumatic. Extraocular muscles intact. Pupils are equal, round, and reactive. Not pale. Not jaundiced. Oral mucosa dry. NECK: Supple. No JVD. CHEST: Equal expansion. No area of tenderness. LUNGS: Clear to auscultation bilaterally. No wheezes. No rhonchi. No crackles. ABDOMEN: Obese, soft, nontender. No palpably enlarged organomegaly. RECTAL: Rectal exam by the ED, gloved finger stained with bright red blood. EXTREMITIES: Lower extremities, no bilateral pedal edema. LABORATORY DATA: Chemistry: Sodium 141, potassium 4.4, chloride 101, bicarb 26, BUN 22, creatinine 1.06, GFR 77, glucose 74. Calcium 8.4, total protein 6.5, albumin 2.5, globulin 4.0, albumin to globulin ratio 0.6, total bilirubin 1.0, alkaline phosphatase 91, ALT 21, AST 41. CBC: WBC 7.3, hemoglobin 11.0, hematocrit 35.5, platelets 312. PT 17.1, INR 1.4. Chest x-ray ordered. Urinalysis ordered. SUMMARY: 1. This is an 85-year-old male with advanced dementia, history of carotid stenosis, status post carotid stent on aspirin and Plavix, who presented to the hospital with complaints of bright red blood per rectum noted at the alf. In the ED, physical exam by the ED physician was noted to have bright red blood on gloved finger. Hemoglobin on presentation was 11.0. Vital signs were stable. An assessment of bright red bleeding per rectum likely due to lower gastrointestinal bleed was made in the ER. Hospitalist was contacted for further evaluation. 2. Gastrointestinal bleed, likely secondary to lower gastrointestinal bleed. At this point, school aide and GI have been consulted. The patient will be placed on clear liquid diet. We will type and cross. Monitor serial H and H. Hold the patient's Plavix and aspirin. Continue PPI. ASSESSMENT: 1. History of left carotid stenosis, status post left carotid stent. At this point, we will hold the patient's aspirin and Plavix. We will continue to monitor the patient's closely. If H and H remained stable and if there is no evidence of further bleeding, we will restart the patient's Plavix and aspirin. 2. Chronic obstructive pulmonary disease. No evidence of exacerbation. We will continue History And Physical [address] [address] NAME: YARITZA HUBBARD JR : 32 STATUS : ADM IN [facility]#: [id number] AGE: 85 ADM/REG DATE : 06/12/16 MR#: [id number] REPORT SERV DATE: 06/13/16 DICTATED BY: JUAN CHAVEZ DATE: 06/12/16 REPORT STATUS : Draft TRANSCRIBED BY: MODL DATE: 06/12/16 patient's home dose of albuterol inhalers. 3. Other chronic comorbid conditions present throughout the course of this admission include chronic kidney disease. The patient's creatinine at this point is 1.03. We will continue to monitor the patient's renal function. 4. Diastolic heart failure with preserved EF. No evidence of acute decompensation and no volume overload. We will continue patient's cardiac medications and continue to monitor closely. 5. Code status: DNR. 6. Admission disposition: Cardiac tele. 7. Admission status: Inpatient. 8. Deep venous thrombosis prophylaxis contraindicated. 9. The patient will be under the care of hospitalist service. IOO/MODL Juan Chavez MD / [id number] CC: MD Devang Garcia M.D.
--- NOTE | ~2016-06-12 | CN ---
Consultation Report [facility] [address] [place]. [address] NAME: YARITZA HUBBARD JR : 32 STATUS : ADM IN PAT#: [id number] AGE: 85 ADM/REG DATE : 06/12/16 MR#: [id number] REPORT SERV DATE: 06/13/16 DICTATED BY: KAITLIN GARCIA DATE: 06/13/16 REPORT STATUS : Draft TRANSCRIBED BY: MODL DATE: 06/13/16 DATE OF CONSULTATION: 06/13/2016 HISTORY OF PRESENT ILLNESS: Shyam is an 85-year-old male whom we are asked to evaluate regarding rectal bleeding. This patient has dementia. He lives at [facility]. Apparently, a constipation week ago and was given a laxative including Colace and Dulcolax and then a Fleet's enema. He subsequently had multiple bowel movements with some diarrhea that improved. Twenty four hours prior to admission, he had some red blood mixed with the bowel movements, and he was brought to the emergency room here. He had a little bit of red blood on his diaper earlier. PAST MEDICAL HISTORY: 1. Chronic kidney disease. 2. COPD. 3. Aortic valve replacement. 4. Morbid obesity. 5. Dementia. 6. Carotid stenosis. 7. History of penile cancer. PAST SURGICAL HISTORY: 1. Aortic valve replacement. 2. Knee surgery. 3. Back surgery. 4. Cardiac stent placement. SOCIAL HISTORY: He does not smoke nor drink. He is . FAMILY HISTORY: Noncontributory. REVIEW OF SYSTEMS: Unable to obtain. I have reviewed the [employer], as well as patient's chart. I have spoken with the . PHYSICAL EXAMINATION: GENERAL: He was alert, but not oriented. VITAL SIGNS: He is afebrile. Vital signs stable. LUNGS: Clear. CARDIOVASCULAR: Revealed normal S1, S2. ABDOMINAL: Revealed active bowel sounds. Soft, nontender without mass or organomegaly. RECTAL: Revealed a little bit of tenderness with spain stool. LABORATORY DATA: Comprehensive metabolic profile normal except for magnesium 2.7, calcium 8.4, albumin 2.5, AST 41. Basic metabolic profile today is normal. White blood cell count Consultation Report [facility] [address] [place]. [address] NAME: YARITZA HUBBARD JR : 32 STATUS : ADM IN PAT#: [id number] AGE: 85 ADM/REG DATE : 06/12/16 MR#: [id number] REPORT SERV DATE: 06/13/16 DICTATED BY: KAITLIN GARCIA DATE: 06/13/16 REPORT STATUS : Draft TRANSCRIBED BY: FRANCINE DATE: 06/13/16 7600, hemoglobin is 12.5, and platelet count 290,000. His hemoglobin on admission was 11, going to 10.5, 10.6, 10.8 and 12. INR is 1.4. IMPRESSION: 1. Hematochezia, most likely this is due to hemorrhoids versus stercoral ulcer. I cannot absolutely rule out a polyp or tumor in the rectum. 2. I have had a discussion with the and discussed with her that it would be difficult to clean out and will be of increased risk. I would not favor a colonoscopy in this patient unless there is life-threatening bleeding and his agrees. RECOMMENDATIONS: 1. I would not favor a colonoscopy. 2. Anusol-HC suppositories per rectum b.i.d. 3. Keep bowel movements regularly. 4. We will sign off. Call us peunice TERAN/FRANCINE Kaitlin Garcia M.D. / [id number] CC: MD Devang Garcia M.D.
[2016-06-12 14:31] LABS: BASOPHILS 0.1 %; BASOPHILS ABSOLUTE 0.01 10/3/uL (0.0-0.16); EOSINOPHILS ABSOLUTE 0.29 10/3/uL (0.0-0.53); ER CBC TAT 0 Hrs 07 Mins; HEMATOCRIT 35.5 % (40.0-51.0); IMMATURE GRANULOCYTES 1.1 %; IMMATURE GRANULOCYTES ABSOLUTE 0.08 10/3/uL (0.0-0.11); LYMPHOCYTES 26.7 %; LYMPHOCYTES ABSOLUTE 1.96 10/3/uL (0.67-4.30); MEAN CORPUSCULAR HEMOGLOB 30.9 pg (26.0-34.0); MEAN CORPUSCULAR VOLUME 99.7 fL (80-100); MEAN PLATELET VOLUME 10.8 fL (9.2-13.0); MONOCYTES 9.3 %; MONOCYTES ABSOLUTE 0.68 10/3/uL (0.21-1.20); NEUTROPHILS 58.8 %; NEUTROPHILS ABSOLUTE 4.31 10/3/uL (2.02-8.40); RBC DISTRIBUTION WIDTH 14.7 % (12.0-16.0); RED CELL COUNT 3.56 10/6/uL (4.7-6.1); WHITE BLOOD CELLS 7.3 10/3/uL (4.5-10.5)
[2016-06-12 14:32] LABS: MANUAL DIFF NO %; PLATELET COUNT 312 10/3/uL (150-400)
[2016-06-12 14:45] LABS: A/G RATIO 0.6 (0.7-1.9); ALBUMIN 2.5 G/DL (3.5-5.0); ALKALINE PHOSPHATASE 91 U/L (45-117); BUN (BLOOD UREA NITROGEN) 22 MG/DL (6-23); CALCIUM, SERUM 8.4 MG/DL (8.5-10.4); CHLORIDE, SERUM 101 MMOL/L (96-112); CO2 (CARBON DIOXIDE) 26 MMOL/L (24-34); CREATININE 1.03 MG/DL (0.70-1.30); GFR AFRICAN AMERICAN 77 ML/MIN (>=60); GFR NON AFRICAN AMERICAN 67 ML/MIN (>=60); GLUCOSE, SERUM 73 MG/DL (60-99); POTASSIUM, SERUM 4.4 MMOL/L (3.5-5.3); SGPT(ALT) 21 U/L (5-65); SODIUM, SERUM 141 MMOL/L (135-148); TOTAL PROTEIN 6.5 G/DL (6.0-8.5)
[2016-06-12 14:47] LABS: SGOT(AST) 41 U/L (5-40)
[2016-06-12 14:57] LABS: INTERNATIONAL NORMAL RATI 1.4 UNITS (-); PARTIAL THROMBO TIME 28.1 SEC (22.5-37.2)
[2016-06-12 14:58] LABS: PROTIME (NOT ORD) 17.1 SEC (12.0-14.5)
[~2016-06-12 15:23] MED LIST changes: +ALTACE10 MG PO; +APRES25 PO; +MIRALAX POWDER1 PKT PO; +NAMENDA10 MG PO; +REFRES1 OPH; +T PO
[2016-06-12] MEDS ORDERED: ASAB PO (15:56)
[2016-06-12] MEDS ORDERED: PLAVIX PO (15:56)
[2016-06-12] MEDS ORDERED: L40 PO (15:57)
[2016-06-12] MEDS ORDERED: DUONEB INH (15:58)
[2016-06-12] MEDS ORDERED: NAMENDA10 MG PO (15:58)
[2016-06-12] MEDS ORDERED: LOP50 PO (15:58)
[2016-06-12] MEDS ORDERED: MUCINEX600 MG PO (15:59)
[2016-06-12] MEDS ORDERED: KDUR20 PO (16:00)
[2016-06-12] MEDS ORDERED: PRAVACHOL40 MG PO (16:00)
[2016-06-12] MEDS ORDERED: PERCOCET 10/3251 TAB PO (16:00)
[2016-06-12] MEDS ORDERED: SEROQUEL25 PO (16:01)
[2016-06-12] MEDS ORDERED: 8 HOUR650 MG PO (16:03)
[2016-06-12] MEDS ORDERED: BION TEARS OPH (16:03)
[2016-06-12] MEDS ORDERED: BISR PR (16:04)
[2016-06-12] MEDS ORDERED: TUMSROLL PO (16:05)
[2016-06-12] MEDS ORDERED: D.O.S.100 MG PO (16:05)
[2016-06-12] MEDS ORDERED: FLEETS ENEMA PR (16:06)
[2016-06-12] MEDS ORDERED: APRES25 PO (16:07)
[2016-06-12] MEDS ORDERED: MELA3 PO (16:07)
[2016-06-12] MEDS ORDERED: MOMUD PO (16:07)
[2016-06-12] MEDS ORDERED: MIRALAX POWDER1 PKT PO (16:08)
[2016-06-12] MEDS ORDERED: ZOFRAN ODT4 MG PO (16:08)
[2016-06-12] MEDS ORDERED: PERI-COLACE1 TAB PO (16:08)
[2016-06-12] MEDS ORDERED: ULTRAM50 PO (16:09)
[2016-06-12 21:23] LABS: PHOSPHORUS, SERUM 2.9 MG/DL (2.5-4.5)
[2016-06-12 21:35] LABS: HEMATOCRIT 34.2 % (40.0-51.0); HEMOGLOBIN 10.5 g/dL (13.6-17.8)
[2016-06-12 22:28] LABS: FREE T4 1.16 NG/DL (0.76-1.46)
[2016-06-13 06:50] LABS: BASOPHILS 0.4 %; BASOPHILS ABSOLUTE 0.03 10/3/uL (0.0-0.16); EOSINOPHILS 4.6 %; EOSINOPHILS ABSOLUTE 0.35 10/3/uL (0.0-0.53); HEMATOCRIT 33.9 % (40.0-51.0); HEMOGLOBIN 10.6 g/dL (13.6-17.8); IMMATURE GRANULOCYTES 0.9 %; IMMATURE GRANULOCYTES ABSOLUTE 0.07 10/3/uL (0.0-0.11); LYMPHOCYTES 21.9 %; LYMPHOCYTES ABSOLUTE 1.65 10/3/uL (0.67-4.30); MEAN CORPUS HGB CONC 31.3 g/dL (32.0-36.0); MEAN CORPUSCULAR HEMOGLOB 30.5 pg (26.0-34.0); MEAN CORPUSCULAR VOLUME 97.7 fL (80-100); MEAN PLATELET VOLUME 10.7 fL (9.2-13.0); MONOCYTES ABSOLUTE 0.98 10/3/uL (0.21-1.20); NEUTROPHILS 59.2 %; NEUTROPHILS ABSOLUTE 4.47 10/3/uL (2.02-8.40); PLATELET COUNT 290 10/3/uL (150-400); RBC DISTRIBUTION WIDTH 14.9 % (12.0-16.0); RED CELL COUNT 3.47 10/6/uL (4.7-6.1); WHITE BLOOD CELLS 7.6 10/3/uL (4.5-10.5)
[2016-06-13 07:04] LABS: MANUAL DIFF NO %
[2016-06-13 07:08] LABS: ALBUMIN 2.4 G/DL (3.5-5.0); CALCIUM, SERUM 8.2 MG/DL (8.5-10.4); CHLORIDE, SERUM 106 MMOL/L (96-112); CO2 (CARBON DIOXIDE) 29 MMOL/L (24-34); CREATININE 0.98 MG/DL (0.70-1.30); GFR AFRICAN AMERICAN 82 ML/MIN (>=60); GFR NON AFRICAN AMERICAN 71 ML/MIN (>=60); GLUCOSE, SERUM 83 MG/DL (60-99); PHOSPHORUS, SERUM 2.6 MG/DL (2.5-4.5); POTASSIUM, SERUM 3.8 MMOL/L (3.5-5.3); SODIUM, SERUM 144 MMOL/L (135-148)
[2016-06-13 07:12] LABS: BUN (BLOOD UREA NITROGEN) 16 MG/DL (6-23)
[2016-06-13 11:34] LABS: HEMATOCRIT 35.1 % (40.0-51.0); HEMOGLOBIN 10.8 g/dL (13.6-17.8)
[2016-06-13 16:31] LABS: HEMOGLOBIN 12.1 g/dL (13.6-17.8)
[2016-06-13 16:32] LABS: HEMATOCRIT 38.8 % (40.0-51.0)
[2016-06-13 22:29] LABS: HEMATOCRIT 38.2 % (40.0-51.0); HEMOGLOBIN 11.7 g/dL (13.6-17.8)
[2016-06-14 05:50] LABS: BASOPHILS 0.3 %; BASOPHILS ABSOLUTE 0.02 10/3/uL (0.0-0.16); EOSINOPHILS 5.5 %; EOSINOPHILS ABSOLUTE 0.43 10/3/uL (0.0-0.53); HEMOGLOBIN 11.2 g/dL (13.6-17.8); IMMATURE GRANULOCYTES 1.2 %; IMMATURE GRANULOCYTES ABSOLUTE 0.09 10/3/uL (0.0-0.11); LYMPHOCYTES 27.2 %; LYMPHOCYTES ABSOLUTE 2.13 10/3/uL (0.67-4.30); MEAN CORPUS HGB CONC 31.1 g/dL (32.0-36.0); MEAN CORPUSCULAR HEMOGLOB 30.5 pg (26.0-34.0); MEAN CORPUSCULAR VOLUME 98.1 fL (80-100); MEAN PLATELET VOLUME 10.9 fL (9.2-13.0); MONOCYTES 13.2 %; MONOCYTES ABSOLUTE 1.03 10/3/uL (0.21-1.20); NEUTROPHILS 52.6 %; NEUTROPHILS ABSOLUTE 4.12 10/3/uL (2.02-8.40); PLATELET COUNT 294 10/3/uL (150-400); RBC DISTRIBUTION WIDTH 14.9 % (12.0-16.0); RED CELL COUNT 3.67 10/6/uL (4.7-6.1); WHITE BLOOD CELLS 7.8 10/3/uL (4.5-10.5)
[2016-06-14 05:51] LABS: MANUAL DIFF NO %
[2016-06-14 06:04] LABS: BUN (BLOOD UREA NITROGEN) 14 MG/DL (6-23); CALCIUM, SERUM 8.4 MG/DL (8.5-10.4); CHLORIDE, SERUM 99 MMOL/L (96-112); CO2 (CARBON DIOXIDE) 31 MMOL/L (24-34); CREATININE 1.11 MG/DL (0.70-1.30); GFR AFRICAN AMERICAN 71 ML/MIN (>=60); GFR NON AFRICAN AMERICAN 61 ML/MIN (>=60); GLUCOSE, SERUM 84 MG/DL (60-99); POTASSIUM, SERUM 3.4 MMOL/L (3.5-5.3); SODIUM, SERUM 143 MMOL/L (135-148)
[2016-06-14 09:37] LABS: HEMATOCRIT 39.2 % (40.0-51.0); HEMOGLOBIN 12.3 g/dL (13.6-17.8)
[2016-06-14 18:40] LABS: HEMATOCRIT 38.2 % (40.0-51.0)
[2016-06-14 21:59] LABS: HEMOGLOBIN 12.4 g/dL (13.6-17.8)
[2016-06-15 06:37] LABS: BASOPHILS 0.2 %; BASOPHILS ABSOLUTE 0.02 10/3/uL (0.0-0.16); EOSINOPHILS ABSOLUTE 0.27 10/3/uL (0.0-0.53); HEMATOCRIT 39.3 % (40.0-51.0); HEMOGLOBIN 12.4 g/dL (13.6-17.8); IMMATURE GRANULOCYTES 1.1 %; LYMPHOCYTES 23.9 %; LYMPHOCYTES ABSOLUTE 2.13 10/3/uL (0.67-4.30); MANUAL DIFF NO %; MEAN CORPUS HGB CONC 31.6 g/dL (32.0-36.0); MEAN CORPUSCULAR HEMOGLOB 31.2 pg (26.0-34.0); MEAN CORPUSCULAR VOLUME 98.7 fL (80-100); MEAN PLATELET VOLUME 11.1 fL (9.2-13.0); MONOCYTES 10.9 %; MONOCYTES ABSOLUTE 0.97 10/3/uL (0.21-1.20); NEUTROPHILS 60.9 %; NEUTROPHILS ABSOLUTE 5.41 10/3/uL (2.02-8.40); PLATELET COUNT 275 10/3/uL (150-400); RBC DISTRIBUTION WIDTH 14.8 % (12.0-16.0); RED CELL COUNT 3.98 10/6/uL (4.7-6.1); WHITE BLOOD CELLS 8.9 10/3/uL (4.5-10.5)
[2016-06-15 06:48] LABS: BUN (BLOOD UREA NITROGEN) 15 MG/DL (6-23); CALCIUM, SERUM 8.5 MG/DL (8.5-10.4); CHLORIDE, SERUM 98 MMOL/L (96-112); CO2 (CARBON DIOXIDE) 31 MMOL/L (24-34); CREATININE 1.16 MG/DL (0.70-1.30); GFR AFRICAN AMERICAN 67 ML/MIN (>=60); GFR NON AFRICAN AMERICAN 58 ML/MIN (>=60); GLUCOSE, SERUM 84 MG/DL (60-99); POTASSIUM, SERUM 3.3 MMOL/L (3.5-5.3); SODIUM, SERUM 142 MMOL/L (135-148)
[2016-09-01] MEDS ORDERED: PLAVIX PO (05:41)
[2016-09-01] MEDS ORDERED: ASAB PO (05:41)
[2016-09-01] MEDS ORDERED: L40 PO (05:42)
[2016-09-01] MEDS ORDERED: L20 PO (05:42)
[2016-09-01] MEDS ORDERED: ZAROX2.5B PO (05:43)
[2016-09-01] MEDS ORDERED: DUONEB INH (05:43)
[2016-09-01] MEDS ORDERED: NAMENDA10 MG PO (05:43)
[2016-09-01] MEDS ORDERED: LOP25 PO (05:43)
[2016-09-01] MEDS ORDERED: KLOR-CON M2020 MEQ PO (05:44)
[2016-09-01] MEDS ORDERED: MIRALAX POWDER1 PKT PO (05:44)
[2016-09-01] MEDS ORDERED: MUCINEX600 MG PO (05:44)
[2016-09-01] MEDS ORDERED: PRAVACHOL40 MG PO (05:44)
[2016-09-01] MEDS ORDERED: SEROQUEL50 MG PO (05:45)
[2016-09-01] MEDS ORDERED: T PO (05:45)
[2016-09-01] MEDS ORDERED: LIQUID TEARS OPH (05:46)
[2016-09-01] MEDS ORDERED: BISR PR (05:46)
[2016-09-01] MEDS ORDERED: DSS PO (05:47)
[2016-09-01] MEDS ORDERED: TUMSROLL PO (05:47)
[2016-09-01] MEDS ORDERED: MELA3 PO (05:50)
[2016-09-01] MEDS ORDERED: APRES25 PO (05:50)
[2016-09-01] MEDS ORDERED: HALDOL IM (05:50)
[2016-09-01] MEDS ORDERED: ZOFRAN ODT4 MG PO (05:51)
[2016-09-01] MEDS ORDERED: MOMUD PO (05:51)
[2016-09-01] MEDS ORDERED: PERCOCET 10/3251 TAB PO (05:52)
[2016-09-01] MEDS ORDERED: SENTAB PO (05:52)
[2016-09-01] MEDS ORDERED: ULTRAM50 PO (05:52)
== END 2016-06-15 16:47 | DRG 378 ==
LOC: ER 15:23 → 7NO 18:58
PROVIDERS: Emergency Medicine; Hospitalist; Internal Medicine
DX: K92.1 Melena (principal); I50.32 Chronic diastolic (congestive) heart failure; I48.92 Unspecified atrial flutter; Z99.81 Dependence on supplemental oxygen; J44.9 Chronic obstructive pulmonary disease, unspecified; Z79.82 Long term (current) use of aspirin; Z79.02 Long term (current) use of antithrombotics/antiplatelets; Z95.2 Presence of prosthetic heart valve; N18.3 Chronic kidney disease, stage 3 (moderate); Z85.89 Personal history of malignant neoplasm of other organs and systems; Z96.653 Presence of artificial knee joint, bilateral; Z66 Do not resuscitate; Z95.820 Peripheral vascular angioplasty status with implants and grafts; E66.01 Morbid (severe) obesity due to excess calories; Z68.36 Body mass index [BMI] 36.0-36.9, adult
CPT/HCPCS: 36415; 80048; 80053; 80069; 83735; 84100; 84439; 84443; 85014; 85018; 85025; 85610; 85730; 86850; 86900; 86901; 93005; 94640; 99285; A9270-GY; C9113